=== PATIENT | male | born 1990 | race Caucasian/White ===

== ENCOUNTER 2020-05-24 12:20 | Outpatient (CLI) | payer OTHER, SELFPAY | END 2020-05-24 12:21 | disposition home or self-care (01) | PROVIDERS: PCP Family Medicine; Visit Provider Family Medicine | DX: Z01.10 Encounter for examination of ears and hearing without abnormal findings (principal) | CPT/HCPCS: 92552; 92556; 92567 ==

== ENCOUNTER 2021-06-02 08:56 | Outpatient (CLI) | payer MEDICARE, MEDICAID, SELFPAY | END 2021-06-02 08:57 | disposition home or self-care (01) | LOC: ANHAUDIO 08:59 | PROVIDERS: PCP Family Medicine; Visit Provider Family Medicine | DX: Z01.10 Encounter for examination of ears and hearing without abnormal findings (principal) | CPT/HCPCS: 92552; 92556; 92567 ==

== ENCOUNTER 2022-06-30 09:01 | Outpatient (CLI) | payer MEDICARE, MEDICAID, SELFPAY | END 2022-06-30 09:02 | disposition home or self-care (01) | LOC: ANHAUDIO 09:02 | PROVIDERS: PCP Family Medicine; Visit Provider Family Medicine | DX: Z01.10 Encounter for examination of ears and hearing without abnormal findings (principal) | CPT/HCPCS: 92552; 92556; 92567 ==

== ENCOUNTER 2023-07-06 07:51 | Outpatient (CLI) | payer MEDICARE, MEDICAID, SELFPAY | END 2023-07-06 07:52 | disposition home or self-care (01) | LOC: ANHAUDIO 07:52 | PROVIDERS: PCP Family Medicine; Visit Provider Family Medicine | DX: Z01.10 Encounter for examination of ears and hearing without abnormal findings (principal) | CPT/HCPCS: 92552; 92556; 92567 ==

== ENCOUNTER 2024-07-13 07:49 | Outpatient (CLI) | payer MEDICARE, MEDICAID, SELFPAY ==
--- OUTSIDE RECORDS SUMMARY | 2024-07-13 07:52 | XMS_ITS | Clinical Summary ---
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 Gender Identity Not on file Sexual Orientation Not on file Plan of Treatment Health Maintenance Due Date Last Done Comments Annual Physical 10/09/1994 Hepatitis C 10/09/2009 DTaP, Tdap and Td Vaccines ( 1 - Tdap) 10/09/2010 Hepatitis B Vaccines (1 of 3 - 19+ 3-dose series) 10/09/2010 COVID-19 Vaccine (2023-2 5 season) 2023 HPV Vaccines Aged Out No longer eligi ble based on patient's age to complete this topic Meningococcal B Vaccine Aged Out No l onger eligible based on patient's age to complete this topic Meningococcal Vaccine Aged Out No sofia josé miguel eligible based on patient's age to complete this topic Pneumococcal Vaccine: Pediat rics (0 to 5 Years) and At-Risk Patients (6 to 49 Years) Aged Out No longer eligible b ased on patient's age to complete this topic RSV Immunizations Under 20 Months Aged Out No longer eligible based on patient's age to complete this topic
--- OUTSIDE RECORDS SUMMARY | 2024-07-13 07:52 | XMS_ITS ---
Author Organization Unknown Address [address] [place] [phone] Phone Care Team Providers Care Preschool Assistant Name Role Phone DOLORES JONES PMHNP Attending Unavailable MARKOS Lockett Primary Unavailable Immunization Immunization Date Status Additional Notes Code Code System DTP 02/08/1992 Completed 01 CVX DTP 04/12/1992 Completed 01 CVX DTP 09/18/1992 Completed 01 CVX DTP 05/09/1993 Completed 01 CVX DTP 11/12/1993 Completed 01 CVX OPV 02/08/1992 Completed 02 CVX OPV 04/12/1992 Completed 02 CVX OPV 05/09/1993 Completed 02 CVX OPV 11/12/1993 Completed 02 CVX MMR 02/06/1993 Completed 03 CVX Hib, unspecified formulation 02/08/1992 Completed 17 CVX Hib, unspecified formulation 04/12/1992 Completed 17 CVX Hib, unspecified formulation 09/18/1992 Completed 17 CVX Hib, unspecified formulation 02/06/1993 Completed 17 CVX Hep B, adult 04/10/2014 Completed 43 CVX Hep B, adult 05/29/2014 Completed 43 CVX Hep B, adult 10/30/2014 Completed 43 CVX Tdap 04/09/2015 Completed 115 CVX Novel [id number] 12/28/2008 Completed 127 CVX Influenza, split virus, trivalent, preservative 11/17/2023 Completed 141 CVX Influenza, split virus, quadrivalent, preservative 11/18/2016 Completed 158 C VX Influenza, split virus, quadrivalent, preservative 11/24/2017 Completed 158 C VX Influenza, split virus, quadrivalent, preservative 11/23/2018 Completed 158 C VX Influenza, split virus, quadrivalent, preservative 11/15/2019 Completed 158 C VX Influenza, split virus, quadrivalent, preservative 11/20/2020 Completed 158 C VX Influenza, split virus, quadrivalent, preservative 11/11/2022 Completed 158 C VX COVID-19, mRNA, LNP-S, PF, 3 0 mcg/0.3 mL dose 03/28/2020 Completed 208 CVX COVID-19, mRNA, LNP-S, PF, 3 0 mcg/0.3 mL dose 04/18/2020 Completed 208 CVX COVID-19, mRNA, LNP-S, PF, 3 0 mcg/0.3 mL dose 03/19/2021 Completed 208 CVX COVID-19, mRNA, LNP-S, PF, 5 0 mcg/0.5 mL 11/19/2023 Completed 312 CVX Results COMPREHENSIVE METABOLIC PANE L - Collect Date/Time: 04/03/2024 07:25 [facility] ID: [id number] [address] [place], [place], [id number] LOINC: 22423-9 Test Value Unit Reference Range Code Code System Flag FASTING NO BUN 17 mg/dL L=7 H=20 3094-0 LOINC CREATININE 1.30 mg/dL L=0.66 H=1.25 2160-0 LOINC H GLUCOSE 110 mg/dL L=74 H=106 2345-7 LOINC H SODIUM 138 mmol/L L=132 H=144 2951-2 LOINC POTASSIUM 4.2 mmol/L L=3.5 H=5.1 2823-3 LOINC CHLORIDE 95 mmol/L L=98 H=107 2075-0 LOINC L CO2 30.0 mmol/L L=22.0 H=30.0 2028-9 LOINC ANION GAP 17 L=10 H=20 64178-8 LOINC OSMOLALITY 288 mOs/kG L=280 H=296 24796-1 LOINC BUN/CREAT 13.1 3097-3 LOINC CALCIUM 9.9 mg/dL L=8.3 H=10.5 10048-2 LOINC AST 34 U/L L=15 H=46 1920-8 LOINC ALT 44 U/L L=9 H=72 1742-6 LOINC ALKALINE PHOS 64 U/L L=38 H=126 6768-6 LOINC TOTAL BILI 0.8 mg/dL L=0.2 H=1.3 1975-2 LOINC ALBUMIN 4.9 G/dL L=3.5 H=5.0 1751-7 LOINC TOTAL PROTEIN 8.2 g/L L=6.3 H=8.2 2885-2 LOINC A/G RATIO 1.5 41070-9 LOINC AGE 33 52657-4 LOINC eGFR NON-AFR 68 ml/min eGFR AFR AMER 82 ml/min HGB A1C -GLYCOHEMOGLOBIN - C ollect Date/Time: 04/03/2024 07:25 [facility] ID: [id number] [address] [place] [address], [id number] LOINC: 4548-4 Test Value Unit Reference Range Code Code System Flag HGBA1C 5.7 % 4548-4 LOINC CBC W/ DIFF - Collect Date/T rand: 04/03/2024 07:25 [facility] ID: [id number] [address] [place] [address], [id number] LOINC: 91783-3 Test Value Unit Reference Range Code Code System Flag WBC 7.2 10^3uL L=4.8 H=10.8 RBC 5.81 10^6uL L=4.60 H=6.20 HEMOGLOBIN 18.3 g/dL L=14.0 H=18.0 718-7 LOINC H HEMATOCRIT 53.0 VOL% L=42.0 H=52.0 4544-3 LOINC H MCV 91.2 fL L=80.0 H=94.0 MCH 31.5 pg L=27.0 H=32.0 MCHC 34.5 g/dL L=32.0 H=36.0 PLATELETS 207 10^3uL L=100 H=400 60360-8 LOINC RDW 12.7 % L=11.7 H=15.5 %GRAN 54.1 % L=40.0 H=70.0 46220-8 LOINC %LYMPH 31.7 % L=20.0 H=45.0 736-9 LOINC %MONO 11.2 % L=2.0 H=10.0 88778-2 LOINC H %EOS 2.2 % L=0.0 H=6.0 713-8 LOINC %BASO 0.4 % L=0.0 H=3.0 706-2 LOINC #NEUT 3.9 10^3uL L=1.9 H=7.6 52061-2 LOINC #LYMPH 2.3 10^3uL L=0.9 H=4.9 83903-9 LOINC #MONO 0.8 10^3uL L=0.1 H=0.9 59457-7 LOINC #EOS 0.2 10^3uL L=0.0 H=0.6 712-0 LOINC #BASO 0.03 10^3uL L=0.00 H=0.10 48879-3 LOINC #IM GRANS 0.0 10^3uL L=0.0 H=7.0 78052-5 LOINC %IM GRANS 0.4 % L=0.0 H=5.0 05884-0 LOINC %NRB 0.0 L=0.0 H=0.2 18889-6 LOINC #NRB 0.000 L=0.000 H=0.012 08058-9 LOINC MANUAL DIFF NOT INDICATED RBC MORPH NOT INDICATED Social History Type Status Start Date End Date Code Code Syst em Smoking History Unknown if ever smoked [address] Smoking History Never smoker (Never Smoked) 798804257 SNOMED CT Sex Male Hospital Discharge Instructions Should you have any questions prior to discharge, please contact a member of your healthcare team. If you have left the hospital and have any questions, please contact your primary care physician. Reason For Referral No Data Found Plan of Treatment No Data Found Encounters Encounter Diagnosis Start Date Code Code Sys tem Long-term current use of drug therapy 04/03/2024 710 194298 SNOMED-CT Personal Care Team Section Performer Name Performer Role Active Date Inactive Da te
--- OUTSIDE RECORDS SUMMARY | 2024-07-13 07:52 | XMS_ITS | Encounter Summary ---
Author Organization 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
--- OUTSIDE RECORDS SUMMARY | 2024-07-13 07:52 | XMS_ITS ---
Author Organization [facility] Address [address] [place] [address] Care Team Providers Care Stripper Printed Circuit Boards Name Role Phone Hernan Parra Primary Care Provider KATIE Arana Unavailable [phone] REASON FOR VISIT FOLLOW UP Medications Medication SIG (Take, Route, Fr equency, Duration) Notes Start Date End Date Status ARIPiprazole 5 MG Oral for 31 Days Active FLUoxetine HCl 20 MG Oral for 31 Days Active Social History Tobacco Use: Social History Observation Description Date Details (start date - stop date) Never Smoker NA - NA Tobacco Use/Smoking Question Answer Notes Tobacco use: nonsmoker Vital Signs Height 72 in 02/17/2024 Weight 193 lbs 02/17/2024 BMI 26.17 kg/m2 02/17/2024 Height-cm 182.88 cm 02/17/2024 Weight-kg 87.54 kg 02/17/2024 Encounters Encounter Location Date Provider Diagnosis [facility] [address] [place] [address] 02/17/2024 KATIE ALVARADO Tinea pedis of both feet B35.3 and Hyperhidrosis R61 Assessments Encounter Date Diagnosis (ICD Code) Assessment Notes Treatment Notes Treatment Clinical Notes Section Notes 02/17/2024 Tinea pedis of both feet (ICD-10 - B35.3) We reviewed fungal nail and skin infections. We discussed the prognosis and treatment options. We discouraged topical therapy with due to low success rate. We discussed oral medications and potential side effects such as liver and/or kidney toxicity. We discussed the need to take the medication for nine to twelve months. We discussed rate of recurrence after treatment. We also discussed the option of observation. Discussed condition and treatment options. The fungal infection appears to have resolved at this point. He still has hyperhydrosis, and is prone to future fungal infections. Recommend a deodorant to his feet. Recommend changing socks frequently. Pt to call with worsening. 02/17/2024 Hyperhidrosis (ICD-10 - R61) Plan Of Treatment Treatment Notes Assessment Notes Tinea pedis of both feet We reviewed fungal nail and skin infections. We discussed the prognosis and treatment options. We discouraged topical therapy with due to low success rate. We discussed oral medications and potential side effects such as liver and/or kidney toxicity. We discussed the need to take the medication for nine to twelve months. We discussed rate of recurrence after treatment. We also discussed the option of observation. Discussed condition and treatment options. The fungal infection appears to have resolved at this point. He still has hyperhydrosis, and is prone to future fungal infections. Recommend a deodorant to his feet. Recommend changing socks frequently. Pt to call with worsening. Next Appt Details Follow Up: prn, Reason: Progress Notes * NAHED JACKSON MDOB:[birth year] (33 yo M)Acc No.[id number]:02/17/2024 Progress Notes Patient: NAHED DON Provider: Madhavi Alvarado DPM :1990 A ge:33 Y S ex:Male Date:02/17/2024 Address:[address] [place], [place] [address] Pcp:Hernan Parra Subjective: * Chief Complaints: * F OLLOW UP * HPI: F ungus: Duration o devon a year, its staying about the same. L ocation b oth feet. A ssociated symptoms m alodor. Relates the smell has improved. Denies any itchiness. Relates to following instructions. * ROS: G eneral / Constitutional: Patient denies c hills, fatigue, fever, headache. ? R espiratory: Patient denies c ough, shortness of breath, wheezing. ? C ardiovascular: Patient denies c hest pain, palpitations. G astrointestinal: Patient denies c onstipation, nausea, vomiting. ? * Medical History: * Surgical History: * Hospitalization/Major Diagno stic Procedure: * Social History: T obacco Use: T obacco Use/Smoking T obacco use: n onsmoker. D rug/Alcohol: D o you smoke marijuana?: Denies. Do you drink alcohol?: No. * Medications: T akingARIPiprazole 5 MG Tablet Oral FLUoxetine HCl 20 MG Capsule Oral Medication List reviewed and reconciled with the patientTaking ARIPiprazole 5 MG Tablet Oral Taking FLUoxetine HCl 20 MG Capsule Oral Medication List reviewed and reconciled with the patient Objective: * Vitals: H t: 72 in, Wt:193lbs, BMI:26.17Index, Wt-k.54 kg, Ht-cm: 182.88 cm, Body Surface Area: 2.11. * Examination: N eurologic: Gross sensation i ntact. V ascular: Dorsalis pedis pulse: p alpable, bilateral. Posterior tibial pulse: p alpable, bilateral. Capillary refill: l ess than 3 seconds. ? D ermatologic: Skin findings: w arm and dry, now without maceration. ? M usculoskeletal: Joint range of motion: o verall adequate range of motion noted. Strength n ormal strength, all muscle groups. Pain elicited with palpation of: n o noted pain on palpation. Pain elicited with range of motion: n o noted pain with range of motion. Assessment: * Assessment: 1. T inea pedis of both feet - B35.3 (Primary) 2 . H yperhidrosis - R61? Plan: * Treatment: * Procedure Codes: * Follow Up: p rn * Billing Information: * Visit Code: 56071 Office Visit, Est Pt., Level 2. * Procedure Codes: * GRAPHICAL DRAFTER Sign off status: Completed true * Provider: Madhavi Alvarado DPM Date: 04/19/2023 Generated for Alan burger/Crystal/Genet on: 0 07/13/2024 07:52 AM CDT History and Physical Notes * HPI (History of Present Illness) Category Sub-Category Detail Notes Category Not es Fungus Duration over a year, its staying abo ut the same Relates the smell has improved. Denies any itchiness. Relates to following instructions. Location both feet Associated symptoms malodor Examination Category Sub-Category Detail Notes Category Not es Dermatologic Skin findings: warm and dry, no w without maceration Neurologic Gross sensation intact Musculoskeletal Joint range of motion: overall a dequate range of motion noted Pain elicited with palpation of: no note d pain on palpation Pain elicited with range of motion: no n oted pain with range of motion Strength normal strength, all muscle groups Vascular Dorsalis pedis pulse: palpable, bilateral Capillary refill: less than 3 seconds Posterior tibial pulse: palpable, bilate ral
--- OUTSIDE RECORDS SUMMARY | 2024-07-13 07:53 | XMS_ITS ---
Author Organization Unknown Address [address] [place] [phone] Phone Care Team Providers Care Corporate Technical Recruiter Name Role Phone DOLORES JONES PMHNP Attending [...] CVX Tdap 04/09/2015 Completed 115 CVX Novel [id number] 12/28/2008 Completed 127 CVX Influenza, split virus, [...] mcg/0.5 mL 11/19/2023 Completed 312 CVX Results CBC W/ DIFF - Collect Date/T rand: 03/30/2023 08:00 [facility] ID: [id number] [address] [place], [place], [id number] LOINC: 09843-8 Test Value Unit Reference Range Code Code System Flag WBC 6.8 10^3uL L=4.8 H=10.8 RBC 5.60 10^6uL L=4.60 H=6.20 HEMOGLOBIN 17.3 g/dL L=14.0 H=18.0 718-7 LOINC HEMATOCRIT 50.8 VOL% L=42.0 H=52.0 4544-3 LOINC MCV 90.7 fL L=80.0 H=94.0 MCH 30.9 pg L=27.0 H=32.0 MCHC 34.1 g/dL L=32.0 H=36.0 PLATELETS 213 10^3uL L=100 H=400 90158-6 LOINC RDW 12.5 % L=11.7 H=15.5 %GRAN 53.6 % L=40.0 H=70.0 92935-9 LOINC %LYMPH 38.0 % L=20.0 H=45.0 736-9 LOINC %MONO 5.3 % L=2.0 H=10.0 87358-7 LOINC %EOS 2.5 % L=0.0 H=6.0 713-8 LOINC %BASO 0.3 % L=0.0 H=3.0 706-2 LOINC #NEUT 3.6 10^3uL L=1.9 H=7.6 87104-8 LOINC #LYMPH 2.6 10^3uL L=0.9 H=4.9 51896-7 LOINC #MONO 0.4 10^3uL L=0.1 H=0.9 79099-0 LOINC #EOS 0.2 10^3uL L=0.0 H=0.6 712-0 LOINC #BASO 0.02 10^3uL L=0.00 H=0.10 08557-6 LOINC #IM GRANS 0.0 10^3uL L=0.0 H=7.0 26149-0 LOINC %IM GRANS 0.3 % L=0.0 H=5.0 23847-4 LOINC %NRB 0.0 L=0.0 H=0.2 10618-9 LOINC #NRB 0.000 L=0.000 H=0.012 72108-4 LOINC MANUAL DIFF NOT INDICATED RBC MORPH NOT INDICATED COMPREHENSIVE METABOLIC PANE L - Collect Date/Time: 03/30/2023 08:00 [facility] ID: [id number] [address] [place], [place], [id number] LOINC: 23541-4 Test Value Unit Reference Range Code Code System Flag FASTING NO BUN 15 mg/dL L=7 H=20 3094-0 LOINC CREATININE 1.20 mg/dL L=0.66 H=1.25 2160-0 LOINC GLUCOSE 132 mg/dL L=74 H=106 2345-7 LOINC H SODIUM 138 mmol/L L=132 H=144 2951-2 LOINC POTASSIUM 4.4 mmol/L L=3.5 H=5.1 2823-3 LOINC CHLORIDE 104 mmol/L L=98 H=107 2075-0 LOINC CO2 29.0 mmol/L L=22.0 H=30.0 8-9 LOINC ANION GAP 9 L=10 H=20 67286-8 LOINC L OSMOLALITY 289 mOs/kG L=280 H=296 87016-9 LOINC BUN/CREAT 12.5 3097-3 LOINC CALCIUM 9.9 mg/dL L=8.3 H=10.5 01187-8 LOINC AST 24 U/L L=15 H=46 1920-8 LOINC ALT 36 U/L L=9 H=72 1742-6 LOINC ALKALINE PHOS 60 U/L L=38 H=126 6768-6 LOINC TOTAL BILI 0.7 mg/dL L=0.2 H=1.3 1975-2 LOINC ALBUMIN 4.5 G/dL L=3.5 H=5.0 1751-7 LOINC TOTAL PROTEIN 7.5 g/L L=6.3 H=8.2 2885-2 LOINC A/G RATIO 1.5 89651-7 LOINC AGE 32 04997-1 LOINC eGFR NON-AFR 75 ml/min eGFR AFR AMER 91 ml/min HGB A1C -GLYCOHEMOGLOBIN - C ollect Date/Time: 03/30/2023 08:00 [facility] ID: [id number] [address] [place], [place], [id number] LOINC: 4548-4 Test Value Unit Reference Range Code Code System Flag HGBA1C 5.6 % 4548-4 LOINC Social History Type Status Start Date End Date Code Code Syst em Smoking History Unknown if ever smoked [id number] Smoking History Never smoker (Never Smoked) [id number] SNOMED CT Sex Male Hospital Discharge Instructions Should you have any questions prior to discharge, please contact a member of your healthcare team. If you have left the hospital and have any questions, please contact your primary care physician. Reason For Referral No Data Found Plan of Treatment No Data Found Encounters Encounter Diagnosis Start Date Code Code Sys tem Other lobsterman (current) drug therapy 03/30/2023 SNOMED-CT Personal Care Team Section Performer Name Performer Role Active Date Inactive Da te
--- OUTSIDE RECORDS SUMMARY | 2024-07-13 07:53 | XMS_ITS | Patient Health Record ---
Author Organization [facility] Address [address] [place] [address] Care Team Providers Care Event Av Operator Name Role Phone Hernan Parra Primary Care Provider KATIE Arana Unavailable [phone] Allergies No Known Allergies Reason For Referral No Information Medications Medication SIG (Take, Route, Fr equency, Duration) Notes Start Date End Date Status ARIPiprazole 5 MG Oral for 31 Days Active FLUoxetine HCl 20 MG Oral for 31 Days Active Social History Tobacco Use: Social History Observation Description Date Details (start date - stop date) Never Smoker NA - NA Tobacco Use/Smoking Question Answer Notes Tobacco use: nonsmoker Vital Signs Height-cm 182.88 cm 02/17/2024 Weight-kg 87.54 kg 02/17/2024 Height 72 in 02/17/2024 Weight 193 lbs 02/17/2024 BMI 26.17 kg/m2 02/17/2024 Encounters Encounter Location Date Provider Diagnosis [email or web address] [address] [place] [address] 01/18/2024 KATIE ALVARADO Tinea pedis of both feet B35.3 and Hyperhidrosis R61 [facility] [address] [place] [address] 02/17/2024 KATIE ALVARADO Tinea pedis of both feet B35.3 and Hyperhidrosis R61 Assessments Encounter Date Diagnosis (ICD Code) Assessment Notes Treatment Notes Treatment Clinical Notes Section Notes 01/18/2024 Tinea pedis of both feet (ICD-10 - [...] of observation. Discussed condition and treatment options. He has a combination of a fungal infection with hyperhydrosis. Discussed treatment options. Recommend a deodorant to his feet, and applying betadine to the toes. Recommend changing socks frequently. Rx terbinafine for the fungus. 01/18/2024 Hyperhidrosis (ICD-10 - R61) 02/17/2024 Tinea pedis of both feet (ICD-10 [...] Hyperhidrosis (ICD-10 - R61) Plan Of Treatment No Information Insurance Providers Payer Name Payer Address Payer Phone Subscriber Number Group Number Insured Name Patient Relationship to Insured Coverage Start Date Coverage End Date [place] [address] [place] [address] [id number] NONE NAHED JACKSON Self - patient is the insured 1 [place] [employer] [address] [address] [place] [id number] NAHED JACKSON Self - patient is the insured
--- OUTSIDE RECORDS SUMMARY | 2024-07-13 07:53 | XMS_ITS ---
Author Organization [facility] Address [address] [place] [address] Care Team Providers Care Ornamental Metal Worker Name Role Phone Hernan Parra Primary Care Provider KATIE Arana Unavailable [phone] Allergies No Known Allergies REASON FOR VISIT FOOT ODOR Medications Medication SIG (Take, Route, Frequency, Duration) Notes Start Date End Date Status FLUoxetine HCl 20 MG Oral for 31 Days Active Terbinafine HCl 250 MG 1 tablet Orally O nce a day for 7 days 01/18/2024 01/25/2024 Active ARIPiprazole 5 MG Oral for 31 Days Active Social History Tobacco Use: Social History Observation Description Date Details (start date - stop date) Never Smoker NA - NA Tobacco Use/Smoking Question Answer Notes Tobacco use: nonsmoker Vital Signs Height 72 in 01/18/2024 Weight 193 lbs 01/18/2024 BMI 26.17 kg/m2 01/18/2024 Height-cm 182.88 cm 01/18/2024 Weight-kg 87.54 kg 01/18/2024 Encounters Encounter Location Date Provider Diagnosis [facility] [address] [place] [address] 01/18/2024 KATIE ALVARADO Tinea pedis of both [...] the fungus. 01/18/2024 Hyperhidrosis (ICD-10 - R61) Plan Of Treatment Medication Medication Name Sig Start Date Stop Date Notes Terbinafine HCl 250 MG 1 tablet Orally O nce a day for 7 days 01/18/2024 01/25/2024 Treatment Notes Assessment Notes Tinea pedis of [...] socks frequently. Rx terbinafine for the fungus. Next Appt Details Follow Up: prn, Reason: Progress Notes * NAHED JACKSON MDOB:[birth year] (33 yo M)Acc No.[id number]:01/18/2024 Progress Notes Patient: NAHED DON Provider: Madhavi Alvarado DPM :1990 A ge:33 Y S ex:Male Date:01/18/2024 Address:[address] [place], [place] [address] Pcp:Hernan Parra Subjective: * Chief Complaints: * F OOT ODOR * HPI: F ungus: Duration o devon a year, its staying about the same. L ocation b oth feet. A ssociated symptoms m alodor. Relates he has a foot odor on both feet. Relates his feet sweat a lot. Relates he hasn't tried anything for it. * ROS: G eneral / Constitutional: Patient [...] Oral FLUoxetine HCl 20 MG Capsule Oral Taking ARIPiprazole 5 MG Tablet Oral Taking FLUoxetine HCl 20 MG Capsule Oral * Allergies: N .K.D.A.no[Allergies Verified] Objective: * Vitals: H t: 72 in, Wt:193lbs, BMI:26.17Index, Wt-k.54 kg, Ht-cm: 182.88 cm, Body Surface Area: 2.11. * Examination: N eurologic: Gross sensation i ntact. V ascular: Dorsalis pedis pulse: p alpable, bilateral. Posterior tibial pulse: p alpable, bilateral. Capillary refill: l ess than 3 seconds. ? D ermatologic: Skin findings: w arm and dry, with mild maceration in a few interspaces. M usculoskeletal: Joint range of motion: o verall adequate range of motion noted. Strength n ormal strength, all muscle groups. Pain elicited with palpation of: n o noted pain on palpation. Pain elicited with range of motion: n o noted pain with range of motion. Assessment: * Assessment: 1. T inea pedis of both feet - B35.3 (Primary) 2 . H yperhidrosis - R61 Plan: * Treatment: * Procedure Codes: * Follow Up: p rn * Billing Information: * Visit Code: 32735 Office Visit, New Pt., Level 3. * Procedure Codes: * JACKET COVER MACHINE OPERATOR Sign off status: Completed true * Provider: Madhavi Alvarado DPM Date: 03/19/2023 Generated for Alan burger/Crystal/eTransmitting on: 0 07/13/2024 07:52 AM CDT History and Physical Notes * HPI (History of Present Illness) Category Sub-Category Detail Notes Category Not es Fungus Duration over a year, its staying abo ut the same Relates he has a foot odor on both feet. Relates his feet sweat a lot. Relates he hasn't tried anything for it. Location both feet Associated symptoms malodor Examination Category Sub-Category Detail Notes Category Not es Dermatologic Skin findings: warm and dry, wi th mild maceration in a few interspaces Neurologic Gross sensation intact Musculoskeletal Joint range [...]
== END 2024-07-13 07:50 | disposition home or self-care (01) ==
LOC: ANHAUDIO 07:50
PROVIDERS: PCP Family Medicine; Visit Provider Family Medicine
DX: Z01.10 Encounter for examination of ears and hearing without abnormal findings (principal)
CPT/HCPCS: 92552; 92556; 92567

== ENCOUNTER 2025-01-12 09:02 | Outpatient (CLI) | payer MEDICARE, MEDICAID, SELFPAY ==
--- OUTSIDE RECORDS SUMMARY | 2025-01-12 09:38 | XMS_ITS | Patient Health Record ---
Author Organization [employer] Address [address] [place] [address] Care Team Providers Care Side Framer Name Role Phone Hernan Parra Primary Care Provider KATIE Arana Unavailable [phone] Allergies No Known Allergies Reason For Referral No Information Medications Medication SIG (Take, Route, Fr equency, Duration) Notes Start Date End Date Status ARIPiprazole 5 MG Oral; Duration: 31 Days Active FLUoxetine HCl 20 MG Oral; Duration: 31 Days Active Social History Tobacco Use: Social History Observation Description Date Details (start date - stop date) Never Smoker NA - NA Tobacco Use/Smoking Question Answer Notes Tobacco use: nonsmoker Vital Signs Height-cm 182.88 cm 02/17/2024 Weight-kg 87.54 kg 02/17/2024 Height 72 in 02/17/2024 Weight 193 lbs 02/17/2024 BMI 26.17 kg/m2 02/17/2024 Encounters Encounter Location Date Provider Diagnosis [facility] [address] [place] [address] 01/18/2024 KATIE ALVARADO Tinea pedis of both feet B35.3 and Hyperhidrosis R61 [place] [address] [place] [address] 02/17/2024 KATIE ALVARADO Tinea pedis of both [...] End Date [place] [address] [place] [address] [phone] [id number] NONE NAHED [place] Self - patient is the insured 1 [place] [employer] [place] A[employer] [address] [address] [place] [address] [id number] NAHED [place] Self - patient is the insured
== END 2025-01-12 09:03 | disposition home or self-care (01) ==
LOC: ANHAUDIO 09:03
PROVIDERS: PCP Family Medicine; Visit Provider Family Medicine
DX: Z01.10 Encounter for examination of ears and hearing without abnormal findings (principal)
CPT/HCPCS: 92557; 92567